=== PATIENT | male | born 1990 | race Caucasian/White ===

== ENCOUNTER 2018-03-23 15:10 | Emergency (ER) | payer OTHER ==
[2018-03-23] MEDS ORDERED: Ketorolac 30 MG/ML SDV IVPUSH ONE (15:29)
[2018-03-23] MEDS ORDERED: Ondansetron 4 MG/2 ML SDV IVPUSH ONE (15:29)
[2018-03-23] MEDS ORDERED: Sodium Chloride 0.9% 1,000 ML IV ONE (15:29)
--- NOTE | 2018-03-23 16:04 | EDM.PDOC ---
ED HPI GENERAL MEDICAL PROBLEM - General Chief Complaint: Syncope Stated Complaint: PASSING OUT, NAUSEATED Time Seen by Provider: 03/23/18 15:28 Source of Information: Reports: Patient History Limitations: Reports: No Limitations - History of Present Illness INITIAL COMMENTS - FREE TEXT/NARRATIVE: HISTORY AND PHYSICAL: History of present illness: Patient is a 27-year-old male who presents to the emergency room with complaints of syncope, diaphoresis and dizziness. 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 He states he woke up to his neighbor waking him up, he was laying on the ground. State "I just passed out". At time he has had dizziness, diaphoresis and some generalized neck pain. 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 Denies any drug or alcohol abuse. Does not take any prescribed medications Patient does mention concern that he could be diabetic, states he has a strong family history. Notes he is frequently drinking water and voiding freqently. Review of systems: As per history of present illness and below otherwise all systems reviewed and negative. Past medical history: As per history of present illness and as reviewed below otherwise noncontributory. Surgical history: As per history of present illness and as reviewed below otherwise noncontributory. Social history: No reported history of drug or alcohol abuse. Family history: As per history of present illness and as reviewed below otherwise noncontributory. Physical exam: General: Developed and well-nourished 27-year-old male. Alert and oriented. Nontoxic appearing and in no acute distress. HEENT: Atraumatic, normocephalic, pupils equal and reactive bilaterally, negative for conjunctival pallor or scleral icterus, mucous membranes moist, throat clear, neck supple, nontender, trachea midline. No drooling or trismus noted. No meningeal signs Lungs: Clear to auscultation, breath sounds equal bilaterally, chest nontender. Heart: S1S2, regular rate and rhythm without overt murmur Abdomen: Soft, nondistended, nontender. Negative for masses or hepatosplenomegaly. Negative for costovertebral tenderness. Pelvis: Stable nontender. Genitourinary: Deferred. Rectal: Deferred. Skin: Intact, warm, dry. No lesions or rashes noted. Extremities: Atraumatic, negative for cords or calf pain. Neurovascular unremarkable. Neuro: Awake, alert, oriented. Cranial nerves II through XII unremarkable. Cerebellum unremarkable. Motor and sensory unremarkable throughout. Exam nonfocal. Notes: Lab work is unremarkable. Chest x-ray shows no evidence of infiltrate, pneumonia or rib fractures. Head and cervical spine CT are within normal limits. Patient states he is unable to give a urine at this time and would like peds test to be canceled. He will follow-up with neurology or his primary care next week if he needs to. He is comfortable going home. I would like to have him stay off of work for the next 48 hours. Supportive care measures were reviewed and discussed. Denies any further questions or concerns at this time. Diagnostics: CBC, CMP, EKG, CXR, Head and Neck CT, Orthostatic vital signs, strep screening Therapeutics: Normal Saline, Zofran, Toradol, Prescription: None Impression: Syncope Plan: 1. Please get plenty of rest over the next 48 hours. 2. Adequate diet and hydration. 3. Tylenol and/or ibuprofen as needed for pain management. 4. Follow-up with your primary care provider on Sunday. He may need a neurology follow-up. Return to the ED as needed and as discussed. Definitive disposition and diagnosis as appropriate pending reevaluation and review of above. Onset: Today Duration: Hour(s): - Related Data Allergies Allergy/AdvReac Type Severity Reaction Status Date / Time No Known Allergies Allergy Verified 03/23/18 15:26 Home Meds: Home Meds . [No Known Home Meds] 03/23/18 [History] Past Medical History - Past Health History Medical/Surgical History: Denies Medical/Surgical History Social & Family History - Tobacco Use Smoking Status *Q: Light Tobacco Smoker Years of Tobacco use: 5 Packs/Tins Daily: 0 - Caffeine Use Caffeine Use: Reports: Coffee - Recreational Drug Use Recreational Drug Use: No ED ROS GENERAL - Review of Systems Review Of Systems: ROS reveals no pertinent complaints other than HPI. - Physical Exam Exam: See Below (See dictation) Course - Vital Signs Last Recorded V/S: Last Vital Signs Temp 98.6 F 03/23/18 15:23 Pulse 102 H 03/23/18 15:23 Resp 20 03/23/18 15:23 BP 126/78 03/23/18 15:23 Pulse Ox 96 03/23/18 15:23 Orthostatic Blood Pressure [ 94/57 Standing] Orthostatic Blood Pressure [ 112/64 Sitting] Orthostatic Blood Pressure [ 114/59 Supine] - Orders/Labs/Meds Orders: Active Orders 24 hr Category Date Time Status EKG Documentation Completion [RC] STAT Care 03/23/18 15:29 Active Orthostatic Vital Signs [RC] ASDIRECTED Care 03/23/18 15:29 Active Cervical Spine wo Cont [CT] Stat Exams 03/23/18 15:44 Taken Chest 1V Frontal [CR] Stat Exams 03/23/18 15:29 Taken Head wo Cont [CT] Stat Exams 03/23/18 15:29 Taken CULTURE STREP A CONFIRMATION [RM] Stat Lab 03/23/18 16:00 Results DRUG SCREEN, URINE [URCHEM] Stat Lab 03/23/18 16:44 Ordered STREP SCRN A RAPID W CULT CONF [RM] Stat Lab 03/23/18 16:00 Results UA W/MICROSCOPIC [URIN] Stat Lab 03/23/18 15:29 Ordered Labs: Laboratory Tests 03/23/18 03/23/18 Range/Units 15:45 15:45 WBC 5.49 (4.0-11.0) K/uL RBC 4.54 (4.50-5.90) M/uL Hgb 12.9 L (13.0-17.0) g/dL Hct 37.1 L (38.0-50.0) % MCV 81.7 (80.0-98.0) fL MCH 28.4 (27.0-32.0) pg MCHC 34.8 (31.0-37.0) g/dL RDW Std Deviation 41.6 (28.0-62.0) fl RDW Coeff of Bar 14 (11.0-15.0) % Plt Count 169 (150-400) K/uL MPV 8.90 (7.40-12.00) fL Neut % (Auto) 48.6 (48.0-80.0) % Lymph % (Auto) 37.0 (16.0-40.0) % Jerauld % (Auto) 12.0 (0.0-15.0) % Eos % (Auto) 1.3 (0.0-7.0) % Baso % (Auto) 1.1 (0.0-1.5) % Neut # (Auto) 2.7 (1.4-5.7) K/uL Lymph # (Auto) 2.0 (0.6-2.4) K/uL Jerauld # (Auto) 0.7 (0.0-0.8) K/uL Eos # (Auto) 0.1 (0.0-0.7) K/uL Baso # (Auto) 0.1 (0.0-0.1) K/uL Nucleated RBC % 0.0 /100WBC Nucleated RBCs # 0 K/uL Sodium 138 (136-148) mmol/L Potassium 3.4 L (3.5-5.1) mmol/L Chloride 103 (98-107) mmol/L Carbon Dioxide 26.4 (21.0-32.0) mmol/L BUN 11 (7.0-18.0) mg/dL Creatinine 1.1 (0.8-1.3) mg/dL Est Cr Clr Drug Dosing 119.36 mL/min Estimated GFR (MDRD) > 60.0 ml/min Glucose 94 (74-106) mg/dL Calcium 8.5 (8.5-10.1) mg/dL Total Bilirubin 1.0 (0.2-1.0) mg/dL AST 36 (15-37) IU/L ALT 47 (14-63) IU/L Alkaline Phosphatase 79 (46-116) U/L Total Protein 6.8 (6.4-8.2) g/dL Albumin 3.5 (3.4-5.0) g/dL Globulin 3.3 (2.0-3.5) g/dL Albumin/Globulin Ratio 1.1 L (1.3-2.8) Meds: Medications Discontinued Medications Generic Name Dose Route Start Last Admin Trade Name Freq PRN Reason Stop Dose Admin Sodium Chloride 1,000 mls @ 999 mls/hr 03/23/18 15:29 03/23/18 16:23 Normal Saline IV 03/23/18 16:29 999 mls/hr STAT ONE Administration Ketorolac Tromethamine 30 mg 03/23/18 15:29 03/23/18 16:24 Toradol IVPUSH 03/23/18 15:30 30 mg ONETIME ONE Administration Ondansetron HCl 4 mg 03/23/18 15:29 03/23/18 16:24 Zofran IVPUSH 03/23/18 15:30 4 mg ONETIME ONE Administration Departure - Departure Time of Disposition: 17:24 Disposition: Home, Self-Care 01 Clinical Impression: Syncope Qualifiers: Syncope type: unspecified Qualified Code(s): R55 - Syncope and collapse - Discharge Information Instructions: Syncope, [id number] Referrals: PCP,None [Primary Care Provider] - Forms: ED Department Discharge Additional Instructions: The following information is given to patients seen in the emergency department who are being discharged to home. This information is to outline your options for follow-up care. We provide all patients seen in our emergency department with a follow-up referral. The need for follow-up, as well as the timing and circumstances, are variable depending upon the specifics of your emergency department visit. If you don't have a primary care physician on staff, we will provide you with a referral. We always advise you to contact your personal physician following an emergency department visit to inform them of the circumstance of the visit and for follow-up with them and/or the need for any referrals to a consulting specialist. The emergency department will also refer you to a specialist when appropriate. This referral assures that you have the opportunity for follow-up care with a specialist. All of these measure are taken in an effort to provide you with optimal care, which includes your follow-up. Under all circumstances we always encourage you to contact your private physician who remains a resource for coordinating your care. When calling for follow-up care, please make the office aware that this follow-up is from your recent emergency room visit. If for any reason you are refused follow-up, please contact the [facility] at and asked to speak to the emergency department charge nurse. [facility] [address] [place] [id number] [facility] [address] [place] [address], [address] [place] [address] 1. Please get plenty of rest over the next 48 hours. 2. Adequate diet and hydration. 3. Tylenol and/or ibuprofen as needed for pain management. 4. Follow-up with your primary care provider on Sunday. He may need a neurology follow-up. Return to the ED as needed and as discussed. - My Orders Last 24 Hours: My Active Orders 03/23/18 15:29 EKG Documentation Completion [RC] STAT Orthostatic Vital Signs [RC] ASDIRECTED Chest 1V Frontal [CR] Stat Head wo Cont [CT] Stat UA W/MICROSCOPIC [URIN] Stat 03/23/18 15:44 Cervical Spine wo Cont [CT] Stat 03/23/18 16:00 CULTURE STREP A CONFIRMATION [RM] Stat STREP SCRN A RAPID W CULT CONF [RM] Stat 03/23/18 16:44 DRUG SCREEN, URINE [URCHEM] Stat - Assessment/Plan Last 24 Hours: My Active Orders 03/23/18 15:29 EKG Documentation Completion [RC] STAT Orthostatic Vital Signs [RC] ASDIRECTED Chest 1V Frontal [CR] Stat Head wo Cont [CT] Stat UA W/MICROSCOPIC [URIN] Stat 03/23/18 15:44 Cervical Spine wo Cont [CT] Stat 03/23/18 16:00 CULTURE STREP A CONFIRMATION [RM] Stat STREP SCRN A RAPID W CULT CONF [RM] Stat 03/23/18 16:44 DRUG SCREEN, URINE [URCHEM] Stat
[2018-03-23 16:10] LABS: CHLORIDE,CL 103 mmol/L (98-107); SODIUM,NA 138 mmol/L (136-148)
--- NOTE | 2018-03-25 14:46 | CT ---
EXAM DATE: 03/23/18 PATIENT'S AGE: 27 Patient: HARVINDER MICHELLE Facility: [place], [place] Site . Site : 1990 Study: CT Head [id number] 4:17:36 PM Ordering Physician: Doctor Flowers Final Report: Indication: Pain, syncope, nausea. Comparison: None available. Technique: Multiple sequential axial images from the foramen magnum to the vertex were obtained without IV contrast. Findings: No evidence of mass effect, midline shift, or extra-axial fluid collection. No evidence of space-occupying lesion or intracranial hemorrhage. No evidence of cortical-based area of infarction. Ventricles and sulci are appropriate for patient age. Basal cisterns are patent. Visualized portions of the orbits, and mastoid air cells are unremarkable. There is minimal opacification in the left maxillary sinus. Impression: No CT evidence of acute intracranial process. Please note that all CT scans at this facility use dose modulation, iterative reconstruction, and/or weight-based dosing when appropriate to reduce radiation dose to as low as reasonably achievable. Dictated by Rush Wallace MD @ Mar 23 2018 4:44PM (Electronic Signature) Report Signed by Proxy. LASHAUN
--- NOTE | 2018-03-25 14:48 | CR ---
EXAM DATE: 03/23/18 PATIENT'S AGE: 27 Patient: HARVINDER MICHELLE Facility: [place], [place] Site . Site : 1990 Study: XRay Chest [id number] 4:19:00 PM Ordering Physician: Doctor Flowers Final Report: INDICATION: Syncope. COMPARISON: None. FINDINGS: A PA view of the chest was obtained. The cardiac silhouette and pulmonary vasculature are within normal limits. The lungs are clear bilaterally. IMPRESSION: No evidence of acute pulmonary disease. Dictated by Gopal Hunt MD @ 03/23/2018 4:50:46 PM Dictated by: Gopal Hunt MD @ 03/23/2018 16:50:54 (Electronic Signature) Report Signed by Proxy. [facility]
--- NOTE | 2018-03-25 14:49 | CT ---
EXAM DATE: 03/23/18 PATIENT'S AGE: 27 Patient: HARVINDER MICHELLE Facility: [place], [place] : 1990 Study: CT Spine Cervical [id number] 4:19:45 PM Ordering Physician: Doctor Flowers Final Report: INDICATION: Syncope, pain common nausea. COMPARISON: None available. TECHNIQUE: CT of the cervical spine without contrast. FINDINGS: There is mild reversal of the normal lordotic curvature within the cervical spine which may be due to external fixation, or due to muscle spasm. There is no static or subluxation. No acute fracture seen. The evaluation is suboptimal in the lower cervical spine due to the streak artifact from the shoulder girdle/body habitus. The soft tissue images are particularly limited. No obvious soft tissue abnormality. IMPRESSION: No acute fracture or static subluxation. Please note that all CT scans at this facility use dose modulation, iterative reconstruction, and/or weight-based dosing when appropriate to reduce radiation dose to as low as reasonably achievable. Dictated by Rush Wallace MD @ Mar 23 2018 4:50PM (Electronic Signature) Report Signed by Proxy. LASHAUN
== END 2018-03-23 17:35 | disposition home or self-care (01) ==
LOC: MW.ED 15:10
DX: R55 Syncope and collapse (principal); F17.210 Nicotine dependence, cigarettes, uncomplicated
CPT/HCPCS: 36415; 70450; 71045; 72125; 80053; 85025; 87081; 87880; 93005; 96361; 96374; 96375; 99284; J1885; J2405; J7040

== ENCOUNTER 2018-03-30 15:29 | Emergency (ER) | payer OTHER ==
--- NOTE | 2018-03-30 16:09 | EDM.PDOC ---
ED HPI GENERAL MEDICAL PROBLEM - General Chief Complaint: ENT Problem Stated Complaint: SORE THROAT AND FEVER Time Seen by Provider: 03/30/18 16:00 Source of Information: Reports: Patient History Limitations: Reports: No Limitations - History of Present Illness INITIAL COMMENTS - FREE TEXT/NARRATIVE: HISTORY AND PHYSICAL: History of present illness: Patient is a 27-year-old male here with complaint of sore throat and fever. He reports a tactile fever, congestion, sinus pressure and sore throat for 4 days. Denies any cough, headache, nausea, vomiting, diarrhea, abdominal pain, chest pain, short of breath. He is taking [id number] cold medications without relief. Review of systems: As per history of present illness and below otherwise all systems reviewed and negative. Past medical history: As per history of present illness and as reviewed below otherwise noncontributory. Surgical history: As per history of present illness and as reviewed below otherwise noncontributory. Social history: No reported history of drug or alcohol abuse. Family history: As per history of present illness and as reviewed below otherwise noncontributory. Physical exam: General: Patient sitting comfortably in no acute distress and nontoxic appearing HEENT: Oropharynx is slightly erythematous tonsils 1+ and erythematous without exudate. Her cervical lymphadenopathy. Atraumatic, normocephalic, pupils reactive, negative for conjunctival pallor or scleral icterus, mucous membranes moist, neck supple, nontender, trachea midline. No meningeal signs. Lungs: Clear to auscultation, breath sounds equal bilaterally, chest nontender. Heart: S1S2, regular, negative for clicks, rubs, or overt murmur. Extremities: Atraumatic, negative for cords or calf pain. Neurovascular unremarkable. Neuro: Awake, alert, oriented. Cranial nerves II through XII unremarkable. Cerebellum unremarkable. Motor and sensory unremarkable throughout. Exam nonfocal. Notes: Diagnostics: None Therapeutics: None Prescriptions: Augmentin Impression: Acute sinusitis, acute pharyngitis Plan: 1. Take antibiotic as directed. Alternate motrin and tylenol as needed 2. Follow up with primary care provider 3. Return to ED as needed as discussed Definitive disposition and diagnosis as appropriate pending reevaluation and review of above. Throat Pain Score (Numeric/FACES): 8 - Related Data Allergies Allergy/AdvReac Type Severity Reaction Status Date / Time No Known Allergies Allergy Verified 03/30/18 15:52 Home Meds: Home Meds Amoxicillin/Potassium Clav [Amox Tr-K Clv 875-125 mg Tab] 1 each PO BID 10 Days #20 tablet 03/30/18 [Rx] Past Medical History - Past Health History Medical/Surgical History: Denies Medical/Surgical History Respiratory History: Reports: Bronchitis, Recurrent Neurological History: Reports: Concussion Social & Family History - Tobacco Use Smoking Status *Q: Current Some Day Smoker Years of Tobacco use: 6 Packs/Tins Daily: 0 - Caffeine Use Caffeine Use: Reports: Coffee - Recreational Drug Use Recreational Drug Use: No ED ROS ENT - Review of Systems Review Of Systems: ROS reveals no pertinent complaints other than HPI. ED EXAM, ENT - Physical Exam Exam: See Below (see dictation) Course - Vital Signs Last Recorded V/S: Last Vital Signs Temp 36.3 C 03/30/18 15:50 Pulse 110 H 03/30/18 15:50 Resp 22 H 03/30/18 15:50 BP 138/86 03/30/18 15:50 Pulse Ox 94 L 03/30/18 15:50 Departure - Departure Time of Disposition: 16:06 Disposition: Home, Self-Care 01 Condition: Good Clinical Impression: Acute pharyngitis - Discharge Information Prescriptions: Amoxicillin/Potassium Clav [Amox Tr-K Clv 875-125 mg Tab] 1 each PO BID 10 Days #20 tablet Instructions: Pharyngitis, [id number] Referrals: PCP,None [Primary Care Provider] - Forms: ED Department Discharge Additional Instructions: The following information is given to patients seen in the emergency department who are being discharged to home. This information is to outline your options for follow-up care. We provide all patients seen in our emergency department with a follow-up referral. The need for follow-up, as well as the timing and circumstances, are variable depending upon the specifics of your emergency department visit. If you don't have a primary care physician on staff, we will provide you with a referral. We always advise you to contact your personal physician following an emergency department visit to inform them of the circumstance of the visit and for follow-up with them and/or the need for any referrals to a consulting specialist. The emergency department will also refer you to a specialist when appropriate. This referral assures that you have the opportunity for follow-up care with a specialist. All of these measure are taken in an effort to provide you with optimal care, which includes your follow-up. Under all circumstances we always encourage you to contact your private physician who remains a resource for coordinating your care. When calling for follow-up care, please make the office aware that this follow-up is from your recent emergency room visit. If for any reason you are refused follow-up, please contact the [facility] at and asked to speak to the emergency department charge nurse. [facility] [address] [place] [address] [id number] [address] [address] 1. Take antibiotic as directed. Alternate motrin and tylenol as needed 2. Follow up with primary care provider 3. Return to ED as needed as discussed
== END 2018-03-30 16:58 | disposition home or self-care (01) ==
LOC: MW.ED 15:29
DX: J02.9 Acute pharyngitis, unspecified (principal); J01.90 Acute sinusitis, unspecified; F17.200 Nicotine dependence, unspecified, uncomplicated
CPT/HCPCS: 99282